=== PATIENT | female | born 1945 | race Caucasian/White ===

== ENCOUNTER 2023-07-08 10:41 | Emergency (ER) | payer MEDICARE, SELFPAY ==
[2023-07-08] VITALS (18 sets, daily range): BP systolic 102–146; BP diastolic 51–74; PULSE 60–75; RESP 16–27; TEMP 36.7; O2SAT 94–100
--- NOTE | ~2023-07-08 | CT_ITS ---
EXAMINATION: CT brain wo con DATE: 07/08/2023 12:08 INDICATION: Syncope TECHNIQUE: Computed tomography (CT) of the head was performed without intravenous contrast. Sagittal and coronal reconstructions were performed. The mA was adjusted according to patient size. Iterative reconstruction technique was employed. The dose-length product was 605.33 mGy-cm. COMPARISON: None FINDINGS: No acute intracranial hemorrhage, acute infarction or abnormal extra axial fluid collection. Small ol d lacunar infarct involving the left lentiform nucleus and subinsular white matter. There is mild sca ttered white matter hypoattenuation consistent with chronic small vessel ischemic disease. Symmetric prominence of the sulci and subarachnoid spaces overlying the convexities consistent with moderate ag e-appropriate diffuse cerebral volume loss. Ventricles are normal and symmetric. No mass/mass effect. The orbits, paranasal sinuses and mastoid air cells are normal. IMPRESSION: 1. Small old lacunar infarct at the left lentiform nucleus and subinsular white matter. No acute intr acranial process. 2. Age-related changes including moderate diffuse volume loss and mild scattered white matter hypoatt enuation consistent with chronic small vessel ischemic disease. Reviewed, dictated and finalized at location A. H HOLDER ASSEMBLER IMPRESSION: 1. Small old lacunar infarct at the left lentiform nucleus and subinsular white matter. No acute intracranial process. 2. Age-related changes including moderate diffuse volume loss and mild scattere d white matter hypoattenuation consistent with chronic small vessel ischemic di sease.
--- NOTE | ~2023-07-08 | CT_ITS ---
EXAMINATION: CTA chest PE protocol DATE: 07/08/2023 13:48 INDICATION: Shortness of breath TECHNIQUE: Computed tomography angiography (CTA) of the chest was performed with 100 mL Omnipaque-350 intravenous contrast timed to evaluate the pulmonary arteries. Coronal maximum intensity projection 3D-reconstructions were created by the technologist. The dose-length product (DLP) was 447.62 mGy-cm. Automated exposure control and iterative reconstruction technique were employed. COMPARISON: None. FINDINGS: The pulmonary arteries are well-opacified. No pulmonary embolism is identified. There is el evation of the right hemidiaphragm. There is mild dependent atelectasis of the lungs. There is a 4 mm nodule of the right lower lobe on image 48. No pleural effusion or pneumothorax. There are changes o f prior cardiac surgery. No pathologically enlarged thoracic lymph nodes are identified. The heart si ze is normal. There is mild thoracic spondylosis. There are changes of cholecystectomy. Cysts of the kidneys measure up to 2.2 cm on the left. There are nonobstructing stones of the left kidney. IMPRESSION: 1. No pulmonary embolus identified. Reviewed, dictated and finalized at location B. ENT CHECKER
--- NOTE | ~2023-07-08 | XR_ITS ---
EXAMINATION: XR ribs LT 2V w CXR 2V DATE: 07/08/2023 12:13 INDICATION: Lateral left lower rib pain post syncopal episode and fall TECHNIQUE: AP and lateral views of the chest and 4 views of the left ribs were obtained. COMPARISON: None FINDINGS: There appear to be 11 paired rib-bearing thoracic segments. Age indeterminate nondisplaced fractures of the anterior left 7th, 8th and 9th ribs. Prominent elevation the right hemidiaphragm with mild rig ht basilar atelectasis. Left lung remains clear. No pulmonary edema, pleural effusion or pneumothorax . Heart size is normal. Median sternotomy wires and mediastinal surgical clips are seen, likely from prior coronary artery bypass grafting. Dual lead pacemaker seen with leads projecting over the expect ed locations of the right atrium and right ventricle. Cholecystectomy clips in right upper quadrant. There are multiple costochondral calcification is. Small cluster of tiny calcific densities project o viridiana the central left kidney, unclear whether this represents nephrolithiasis or additional costochond ral calcification. IMPRESSION: 1. Age-indeterminate nondisplaced fractures of the anterior left 7th, 8th and 9th ribs. 2. Prominent elevation right hemidiaphragm with right basilar atelectasis. No other acute cardiopulmo nary disease. 3. Possible left nephrolithiasis. Reviewed, dictated and finalized at location A. I[employer]ED MEDICAL BILLER IMPRESSION: 1. Age-indeterminate nondisplaced fractures of the anterior left 7th, 8th and 9 th ribs. 2. Prominent elevation right hemidiaphragm with right basilar atelectasis. No o ther acute cardiopulmonary disease. 3. Possible left nephrolithiasis.
--- NOTE | 2023-07-08 10:41 | ECG_ITS ---
Measurements Intervals [place] Rate: 62 P: 40 ME: 223 QRS: 259 QRSD: 169 T: 108 QT: 510 QTc: 522 Interpretive Statements ELECTRONIC VENTRICULAR PACEMAKER ABNORMAL RHYTHM ECG NO PREVIOUS ECG AVAILABLE FOR COMPARISON Electronically Signed On 07-08-2023 15:35:39 [place] by Cody Guzman M.D.
--- NOTE | 2023-07-08 11:02 | ED.SYNCOPE ---
HPI - Syncope General Chief Complaint: Syncope Stated Complaint: syncopal episode Time Seen by Provider: 07/08/23 10:55 Source: patient and EMS Mode of arrival: EMS Limitations: dementia History of Present Illness HPI narrative: This is a 78 year old female that presents to the ER for a syncopal episode. Reports she had gotten up and eaten breakfast and was getting ready to go on her trip. She went to use to the restroom and that's the last think she remembers. Patient reported to have had a syncopal episode in the bathroom. She reports generalized weakness, shortness of breath, as well as left sided rib pain. Denies vision changes, chest pain, vomiting, numbness or weakness. Related Data Home Medications Medication Instructions Recorded Confirmed Lexapro 07/08/23 amlodipine 5 mg tablet 5 mg PO 07/08/23 aspirin 81 mg PO 07/08/23 buspirone 10 mg tablet mg 07/08/23 donepezil 10 mg tablet 10 mg PO 07/08/23 lovastatin 20 mg tablet mg 07/08/23 magnesium oxide 400 mg (241.3 mg mg 07/08/23 magnesium) tablet memantine 10 mg tablet mg 07/08/23 metformin 500 mg tablet,extended mg PO 07/08/23 release 24 hr omeprazole 20 mg capsule,delayed mg 07/08/23 release ramipril 10 mg capsule mg 07/08/23 Allergies Allergy/AdvReac Type Severity Reaction Status Date / Time No Known Allergies Allergy Verified 07/08/23 11:09 Review of Systems Review of Systems: CONSTITUTIONAL: Denies fever EYES: Denies visual changes CARDIOVASCULAR: Denies chest pain, palpitations, or edema. RESPIRATORY: Reports dyspnea. GASTROINTESTINAL: Denies vomiting MUSCULOSKELETAL: Denies back pain, joint pain NEUROLOGIC: Denies numbness, or weakness. All systems reviewed & are unremarkable except as noted in HPI and below PMFSH Past Medical History Medical History (Updated 07/08/23 @ 15:46 by Gabbie Rodriguez PA-C) History of anxiety History of dementia History of pacemaker Social History Social History (Updated 07/08/23 @ 11:05 by Gabbie Rodriguez PA-C) Substance use: never Exam Narrative: GENERAL: Elderly, well-nourished, and in no acute distress. HEAD: Normocephalic, atraumatic. EYES: PERRLA and EOMI. ENT: Nares clear, no rhinorrhea or epistaxis. Mucous membranes moist. Oropharynx without tonsillar hypertrophy exudate or other lesions. Bilateral TMs pearly weinberg non-bulging NECK: Supple. No adenopathy or masses. No midline spinal tenderness CHEST: Clear to auscultation. No respiratory distress. No wheezes rales or rhonchi HEART: Regular rate and rhythm. No murmur heard. Normal peripheral pulses. ABDOMEN: Soft, nontender, nondistended, normal active bowel sounds. EXTREMITIES: Normal range of motion. No edema or obvious deformity. Strength equal in bilateral upper and lower extremities (5/5) SKIN: Warm, dry, no rash. NEURO: No focal deficits. Alert and oriented x2. CN II-XII grossly intact PSYCH: Normal mood and affect Course Course Emergency Course: Patient and family updated on her workup. Recommended admission to the hospital for further observation and evaluation. They decline at this time Consultations Consultation #1: Spoke with pacemaker rep, nothing concerning on interrogation Vital Signs Vital signs: Vital Signs Pulse Rate 63 07/08/23 10:41 Respiratory Rate 24 H 07/08/23 10:41 Blood Pressure 112/60 07/08/23 10:41 Pulse Oximetry 100 07/08/23 10:41 Oxygen Delivery Room Air 07/08/23 10:41 Temperature 98.1 F 07/08/23 13:19 Pulse Rate 63 07/08/23 15:16 Respiratory Rate 16 07/08/23 15:16 Blood Pressure 138/74 07/08/23 15:16 Pulse Oximetry 97 07/08/23 15:16 Oxygen Delivery Room Air 07/08/23 10:49 MDM - Syncope MDM Narrative Medical decision making narrative: Patient presents to the emergency department after a syncopal episode today. Reporting left-sided rib pain. Reporting no prodrome all symptoms. Patient does have prior history of syncopal episodes, a
[2023-07-08 12:34] LABS: Basophils Absolute Auto 0.1 K/mm3 (0.0-0.1); Basophils Percent Auto 0.6 % (0.2-1.2); Eosinophils Absolute Auto 0.1 K/mm3 (0-0.3); Eosinophils Percent Auto 0.8 % (0-4.4); Hematocrit 48.2 % (37.0-47.0); Hemoglobin 15.7 g/dL (12.0-15.0); Immature Granulocyte Absolute 0.05 K/mm3 (0.00-0.031); Immature Granulocyte Percent A 0.3 % (0-0.5); Lymphocytes Absolute Auto 2.03 K/mm3 (0.9-3.2); Lymphocytes Percent Auto 14.1 % (18.3-44.2); Mean Corpuscular HGB Conc 32.6 g/dl (32-36); Mean Corpuscular Hemoglobin 29.7 pg (26-34); Mean Corpuscular Volume 91.3 fl (80-100); Mean Platelet Volume 10.1 fl (7.4-10.4); Monocytes Absolute Auto 0.9 K/mm3 (0.1-0.6); Monocytes Percent Auto 6.2 % (2.6-8.5); Neutrophils Absolute Auto 11.3 K/mm3 (1.3-6.7); Platelet Count Result 201 k/mm3 (150-375); Red Blood Count 5.28 M/mm3 (4.2-5.4); Red Cell Distribution Width 12.6 % (11.5-14.5); White Blood Count 14.4 K/mm3 (4.5-10.0)
[2023-07-08] MEDS: ACETAMINOPHEN 500 MG TABLET 1000 MG PO (12:41)
[2023-07-08 12:45] LABS: Alanine Aminotransferase 27 U/L (6-35); Albumin Level 4.3 g/dL (3.5-5.1); Alkaline Phosphatase 93 U/L (38-126); Anion Gap 7 mmol/L (8-16); Aspartate Amino Transferase 32 U/L (14-36); Bilirubin,Total 0.7 mg/dL (0.2-1.3); Blood Urea Nitrogen 16 mg/dL (7-17); Calcium 10.1 mg/dL (8.4-10.2); Carbon Dioxide 28 mmol/L (22-30); Chloride 104 mmol/L (98-107); Estimated CRCL calculation 34 ml/min; Estimated Glomerular Filt Rate 48; Glucose 100 mg/dL (65-110); Potassium 4.2 mmol/L (3.4-5.0); Sodium 139 mmol/L (137-145)
[2023-07-08 12:47] LABS: INR 0.9; Prothrombin Time 12.6 Seconds (11.1-14.7)
[2023-07-08 12:48] LABS: Partial Thromboplastin Time 27.8 SECONDS (22.3-36.8)
[2023-07-08 12:55] LABS: D Dimer 0.56 ug/mL (<0.48)
[2023-07-08 13:29] LABS: Troponin I < 0.012 ng/mL (0.000-0.034)
[2023-07-08 13:43] LABS: Appearance Urine Turbid (Clear); Bacteria Urine 3+ /hpf; Bilirubin Urine Negative (Negative); Blood Urine Negative (Negative); Calcium Oxalate Crystals Urine Present /hpf; Color Urine Yellow (Yellow); Glucose Urine UA Negative (Negative); Ketones Urine Trace mg/dL (Negative); Leukocyte Esterase Ur 2+ LEU/UL (Negative); Need Manual Microscopic Reviewed; Nitrate Urine Positive (Negative); Protein Urine Trace mg/dL (Negative); Specific Grav Ur 1.018 (1.001-1.035); Squamous Epithelial Cell Urine Occasional /hpf (Few); Urobilinogen Urine 0.2 mg/dL (<2.0); WBC Urine 21-50 /hpf
[2023-07-08 13:46] LABS: Add Urine Microscopic? YES
== END 2023-07-08 16:43 | disposition home or self-care (01) ==
PROVIDERS: Student in an Organized Health Care Education/Training Program; Emergency Provider Physician Assistant
DX: N39.0 Urinary tract infection, site not specified (principal); S22.42XA Multiple fractures of ribs, left side, initial encounter for closed fracture; R55 Syncope and collapse; F03.90 Unspecified dementia, unspecified severity, without behavioral disturbance, psychotic disturbance, mood disturbance, and anxiety; Z79.899 Other long term (current) drug therapy; Z79.82 Long term (current) use of aspirin; X58.XXXA Exposure to other specified factors, initial encounter
CPT/HCPCS: 36415; 70450; 71046; 71100; 71275; 80053; 81001; 84484; 85025; 85380; 85610; 85730; 87040; 87077; 87086; 87186; 93005; 96365; 99284; A9270; J0696; Q9967

== ENCOUNTER 2023-11-21 08:34 | Emergency (ER) | payer MEDICARE, SELFPAY ==
[2023-11-21] VITALS (18 sets, daily range): BP systolic 128–152; BP diastolic 61–73; PULSE 64–74; RESP 12–23; TEMP 36.4; O2SAT 93–96
--- NOTE | 2023-11-21 08:41 | ED.ABDPAIN ---
HPI - Abdominal Pain General Chief Complaint: Abdominal Pain Stated Complaint: back/abd pain History of Present Illness HPI narrative: 78-year-old female presenting to the emergency department for evaluation for some generalized weakness and nausea without vomiting and intermittent abdominal pain. Patient states symptoms started yesterday. Patient states she is unsure of what is going on. Upon arrival to the emergency department patient appears to be in no distress. Patient was having some nausea EN route was treated with Zofran which did not help significantly. Related Data Home Medications Medication Instructions Recorded Confirmed Lexapro 07/08/23 amlodipine 5 mg tablet 5 mg PO 07/08/23 aspirin 81 mg PO 07/08/23 buspirone 10 mg tablet mg 07/08/23 donepezil 10 mg tablet 10 mg PO 07/08/23 lovastatin 20 mg tablet mg 07/08/23 magnesium oxide 400 mg (241.3 mg mg 07/08/23 magnesium) tablet memantine 10 mg tablet mg 07/08/23 metformin 500 mg tablet,extended mg PO 07/08/23 release 24 hr omeprazole 20 mg capsule,delayed mg 07/08/23 release ramipril 10 mg capsule mg 07/08/23 Allergies Allergy/AdvReac Type Severity Reaction Status Date / Time No Known Allergies Allergy Verified 07/08/23 11:09 Review of Systems Review of Systems: All systems reviewed & are unremarkable except as noted in HPI and below PMFSH Past Medical History Medical History (Updated 11/21/23 @ 11:01 by Oscar Rivera MD) History of anxiety History of dementia History of pacemaker Social History Social History (Updated 07/08/23 @ 11:05 by Gabbie Rodriguez PA-C) Substance use: never Exam Narrative: APPEARANCE: Well appearing, no pain, no distress, well-nourished. HEAD: normocephalic, atraumatic. EYES: PERRLA/EOMI, conjunctivae clear. NOSE: Normal no drainage EARS:TMS clear with good light reflex. THROAT: Pharynx clear, no exudate. NECK: Supple. No adenopathy, no masses. RESPIRATORY: Airway patent, respirations nonlabored. Clear to auscultation bilaterally, no rales, rhonchi, wheezing. CARDIOVASCULAR: Regular rate and rhythm without murmurs rubs or gallops. ABDOMINAL: Soft, nontender, nondistended, normal bowel sounds MUSCULOSKELETAL: Moves all extremities. Strength/ROM intact, No edema, No calf tenderness. NEURO: Alert. Cranial nerves II through XII intact. Good gait. Good coordination SKIN: Warm, dry. Normal Color Course Course Emergency Course: Patient was treated for a urinary tract infection, patient reports she feels short of for discharge home. Patient family updated on results of the workup and plan for treatment. Vital Signs Vital signs: Vital Signs Temperature 97.5 F L 11/21/23 08:33 Pulse Rate 65 11/21/23 08:33 Respiratory Rate 16 11/21/23 08:33 Blood Pressure 152/69 H 11/21/23 08:33 Pulse Oximetry 94 11/21/23 08:33 Oxygen Delivery Room Air 11/21/23 08:33 Temperature 97.5 F L 11/21/23 08:33 Pulse Rate 70 11/21/23 11:40 Respiratory Rate 20 11/21/23 11:25 Blood Pressure 144/63 H 11/21/23 11:40 Pulse Oximetry 94 11/21/23 11:40 Oxygen Delivery Room Air 11/21/23 08:33 MDM - Abdominal Pain MDM Narrative Medical decision making narrative: 78-year-old female present to the emergency department for evaluation of increased generalized weakness. Patient is afebrile with a leukocytosis of 12.5, no major abnormalities on her CMP. UA is concerning for urinary tract infection. Patient denies any hematuria or vaginal bleeding. Patient states she does feel strong enough for discharge to home. Patient states she has been eating and drinking okay and denies any falls or weakness. Patient's daughter is present. Patient was started on Rocephin in the emergency department be discharged home with Keflex. Differential Diagnosis Differential diagnosis: Likely abdominal pain, acute appendicitis, constipation, diverticulitis, pancreatitis and small bowel obstruction
[2023-11-21] MEDS: METOCLOPRAMIDE HCL INJ 10 MG/2 ML VIAL IV PUSH (08:44)
[2023-11-21] MEDS: SODIUM CHLORIDE 0.9% IV 1,000 ML 999 ML IV CONT (08:45)
[2023-11-21 09:03] LABS: Basophils Absolute Auto 0.1 K/mm3 (0.0-0.1); Basophils Percent Auto 0.5 % (0.2-1.2); Eosinophils Absolute Auto 0.1 K/mm3 (0-0.3); Eosinophils Percent Auto 0.5 % (0-4.4); Hematocrit 46.9 % (37.0-47.0); Hemoglobin 15.5 g/dL (12.0-15.0); Immature Granulocyte Absolute 0.04 K/mm3 (0.00-0.031); Immature Granulocyte Percent A 0.3 % (0-0.5); Lymphocytes Absolute Auto 1.86 K/mm3 (0.9-3.2); Lymphocytes Percent Auto 14.9 % (18.3-44.2); Mean Corpuscular Hemoglobin 28.9 pg (26-34); Mean Corpuscular Volume 87.3 fl (80-100); Mean Platelet Volume 10.2 fl (7.4-10.4); Monocytes Absolute Auto 0.6 K/mm3 (0.1-0.6); Neutrophils Absolute Auto 9.8 K/mm3 (1.3-6.7); Neutrophils Percent Auto 78.8 % (45.5-73.1); Platelet Count Result 223 k/mm3 (150-375); Red Blood Count 5.37 M/mm3 (4.2-5.4); Red Cell Distribution Width 12.9 % (11.5-14.5); White Blood Count 12.5 K/mm3 (4.5-10.0)
[2023-11-21 09:12] LABS: Lactic Acid Reflex 1.1 mmol/L (0.7-2.0)
[2023-11-21 09:13] LABS: Alanine Aminotransferase 17 U/L (6-35); Albumin Level 4.2 g/dL (3.5-5.1); Alkaline Phosphatase 84 U/L (38-126); Anion Gap 3 mmol/L (4-12); Aspartate Amino Transferase 26 U/L (14-36); Bilirubin,Total 0.5 mg/dL (0.2-1.3); Blood Urea Nitrogen 16 mg/dL (7-17); Calcium 9.9 mg/dL (8.4-10.2); Carbon Dioxide 31 mmol/L (22-30); Chloride 105 mmol/L (98-107); Estimated CRCL calculation 37 ml/min; Estimated Glomerular Filt Rate 53; Glucose 136 mg/dL (65-110); Lipase 169 U/L (23-300); Sodium 139 mmol/L (137-145)
[2023-11-21 10:34] LABS: Bacteria Urine 4+ /hpf; Calcium Oxalate Crystals Urine Present /hpf; Non Pathogenic Casts 0-2; RBC Urine 51-100 /hpf (0-2); Squamous Epithelial Cell Urine Few /hpf (Few); WBC Urine 51-100 /hpf (0-3)
[2023-11-21 10:39] LABS: Appearance Urine Turbid (Clear); Bilirubin Urine Negative (Negative); Blood Urine 1+ (Negative); Color Urine Yellow (Yellow); Glucose Urine UA Negative (Negative); Ketones Urine Trace mg/dL (Negative); Leukocyte Esterase Ur 3+ LEU/UL (Negative); Nitrate Urine Negative (Negative); Protein Urine Trace mg/dL (Negative); Specific Grav Ur 1.021 (1.001-1.035); pH Urine 6.5 (5.0-9.0)
[2023-11-21 10:50] LABS: Add Urine Microscopic? YES
== END 2023-11-21 12:05 | disposition home or self-care (01) ==
PROVIDERS: Emergency Provider Emergency Medicine; PCP Internal Medicine
DX: N39.0 Urinary tract infection, site not specified (principal); R53.1 Weakness; F03.90 Unspecified dementia, unspecified severity, without behavioral disturbance, psychotic disturbance, mood disturbance, and anxiety; F41.9 Anxiety disorder, unspecified; Z95.0 Presence of cardiac pacemaker; Z79.84 Long term (current) use of oral hypoglycemic drugs; Z79.899 Other long term (current) drug therapy; Z79.82 Long term (current) use of aspirin
CPT/HCPCS: 36415; 80053; 81001; 83605; 83690; 85025; 87077; 87086; 87088; 87186; 96365; 96375; 99284; J0696; J2765; J7030